=== PATIENT | female | born 1965 | race Native Hawaiian/Other Pacific Islander ===

== ENCOUNTER 2017-02-07 03:16 | Emergency (ER) | payer OTHER ==
--- NOTE | 2017-02-07 03:37 | C.PDOC ---
Time Seen by Provider: 02/07/17 03:27 Chief Complaint (Nursing): Abdominal Pain Past Medical History Vital Signs: Last Vital Signs Temp 98 F 02/07/17 03:23 Pulse 72 02/07/17 03:23 Resp 20 02/07/17 03:23 BP 135/74 02/07/17 03:23 Pulse Ox 95 02/07/17 03:23 Family History: States: Unknown Family Hx - Social History Hx Tobacco Use: Yes Hx Alcohol Use: No Hx Substance Use: No - Immunization History Hx Tetanus Toxoid Vaccination: No Hx Influenza Vaccination: No Hx Pneumococcal Vaccination: No ED Course And Treatment ECG: Interpreted By Me, Viewed By Me ECG Rhythm: Sinus Rhythm ECG Interpretation: No Acute Changes Interpretation Of ECG: NSR, normaal tracings. Rate From EC O2 Sat by Pulse Oximetry: 95 Pulse Ox Interpretation: Normal
[2017-02-07 03:50] LABS: BASO # 0.1 K/uL (0.0-0.2); BASO % 0.4 % (0.0-2.0); EOS # 0.1 K/uL (0.0-0.7); HEMATOCRIT 43.3 % (34.0-47.0); LYMPH # 2.4 K/uL (1.0-4.3); LYMPH % 17.3 % (20.0-40.0); MEAN CELL VOLUME 92.3 fL (81.0-99.0); MEAN CORPUSCULAR HEMOGLOBIN 30.6 pg (27.0-31.0); MEAN CORPUSCULAR HGB CONC 33.2 g/dL (33.0-37.0); MEAN PLATELET VOLUME 7.9 fL (7.2-11.7); MONO # 0.5 K/uL (0.0-0.8); MONO % 3.6 % (0.0-10.0); RED CELL DISTRIBUTION WIDTH 12.9 % (11.5-14.5)
[2017-02-07 03:57] LABS: CHLORIDE 103 mmol/L (98-107); SODIUM 141 mmol/L (132-148)
[2017-02-07 03:58] LABS: POTASSIUM 4.2 mmol/L (3.6-5.2)
[2017-02-07 04:00] LABS: ALB/GLOB RATIO 1.5 (1.0-2.1); ALKALINE PHOSPHATASE 65 U/L (38-126); AST/SGOT 18 U/L (14-36); BILIRUBIN,TOTAL 0.6 mg/dL (0.2-1.3); BLOOD UREA NITROGEN 18 mg/dL (7-17); CARBON DIOXIDE 26 mmol/L (22-30); GFR AFRICAN-AMERICAN > 60; GLUCOSE,RANDOM 113 mg/dL (65-105); TOTAL PROTEIN 7.9 g/dL (6.3-8.3)
[2017-02-07 04:01] LABS: ALT/SGPT 22 U/L (9-52); CALCIUM 9.1 mg/dl (8.6-10.4)
--- NOTE | 2017-02-07 04:23 | C.PDOC ---
History Of Present Illness 51 y/o female presents to ER with c/o of epigastric pain after eating porkchops last night, denies N/V/D, no fever, recent travel or UTI symptoms. Pt took PO Omeprazole at home with no relief Time Seen by Provider: 02/07/17 03:27 Chief Complaint (Nursing): Abdominal Pain History Per: Patient History/Exam Limitations: no limitations Onset/Duration Of Symptoms: Gradual (since last night) Current Symptoms Are (Timing): Still Present Context: Food Severity: Moderate Location Of Pain/Discomfort: Epigastric Quality Of Discomfort: Burning Associated Symptoms: denies: Fever, Nausea, Vomiting, Diarrhea, Back Pain, Chest Pain, Constipation, Urinary Symptoms Exacerbating Factors: Food Alleviating Factors: None Last Bowel Movement: Yesterday (normal) Recent travel outside of the [place]: No Past Medical History Vital Signs: Last Vital Signs Temp 98.1 F 02/07/17 05:58 Pulse 70 02/07/17 05:58 Resp 16 02/07/17 05:58 BP 152/81 H 02/07/17 05:58 Pulse Ox 98 02/07/17 05:58 - Medical History PMH: Gastritis Family History: States: Unknown Family Hx - Social History Hx Tobacco Use: Yes Hx Alcohol Use: No Hx Substance Use: No - Immunization History Hx Tetanus Toxoid Vaccination: No Hx Influenza Vaccination: No Hx Pneumococcal Vaccination: No Review Of Systems Constitutional: Negative for: Fever Cardiovascular: Negative for: Chest Pain Gastrointestinal: Positive for: Abdominal Pain (epigastric). Negative for: Nausea, Vomiting, Diarrhea, Constipation Physical Exam - Physical Exam Appears: Well, Non-toxic, In Acute Distress (minimal painful GI distress) Skin: Normal Color Eye(s): bilateral: Normal Inspection, PERRL Throat: Normal Chest: Symmetrical, No Tenderness Cardiovascular: Rhythm Regular, No Murmur Respiratory: Normal Breath Sounds, No Rales, No Rhonchi, No Wheezing Gastrointestinal/Abdominal: Normal Exam, Bowel Sounds (normal), Soft, Tenderness (minimal epigastric), No Distention, No Guarding, No Rebound Back: No CVA Tenderness Neurological/Psych: Oriented x3, Normal Speech Gait: Steady ED Course And Treatment - Laboratory Results Result Diagrams: 02/07/17 03:47 02/07/17 03:47 O2 Sat by Pulse Oximetry: 95 Pulse Ox Interpretation: Normal Progress Note: Pepcid ad zofram IV ordered. Labs reviewed and d/w pt. Pt still c/o of pain- maalox and lidocaine with ordered. Pt appears well, feels better, in NAD. Abdomen now soft, non tender. pt will follow up with PMD. Pt understands and agrees with plan and return precautions Reevaluation Time: 06:04 Reassessment Condition: Improved Disposition Counseled Patient/Family Regarding: Diagnosis, Need For Followup, Rx Given - Disposition Disposition: HOME/ ROUTINE Disposition Time: 04:59 Condition: STABLE Additional Instructions: Please follow up with PMD D/C omeprazole - Take pepcid and maalox Return to ER if worse Prescriptions: Aluminum Hydroxide/Magnesium H [Maalox 30 ml] 30 ml PO TID #100 ml Famotidine [Pepcid] 20 mg PO DAILY #20 tab Instructions: Gastritis (ED) - Clinical Impression Clinical Impression: Gastritis
[2017-02-07] MEDS ORDERED: Aluminum Hydroxide/Magnesium Hydroxide Susp (30 mL) PO STA (04:29)
[2017-02-07 04:40] LABS: RBC URINE 6 /hpf (0-3); URINE BILIRUBIN NEGATIVE (NEGATIVE); URINE BLOOD NEGATIVE (NEGATIVE); URINE COLOR Yellow (YELLOW); URINE GLUCOSE (UA) NORMAL (Normal); URINE KETONE NEGATIVE (NEGATIVE); URINE LEUKOCYTE ESTERASE TRACE Leu/uL (Negative); URINE PROTEIN NEGATIVE (NEGATIVE); URINE UROBILINOGEN NORMAL mg/dL (0.2-1.0); WBC URINE 4 /hpf (0-5)
[2017-02-07] MEDS ORDERED: Aluminum Hydroxide/Magnesium Hydroxide Susp (30 mL) ONE (04:45)
[2017-02-07] MEDS ORDERED: Belladonna-Phenobarbital ONE (05:24)
[2017-02-07] MEDS ORDERED: Belladonna-Phenobarbital PO STA (05:30)
[2017-02-07 05:59] VITALS: BP 152/81; PULSE 70; RESP 16; TEMP 98.1
[2017-02-07 06:25] VITALS: O2SAT 95
--- NOTE | 2017-02-08 14:05 | CARD ---
APPROVED REPORT EKG Measurement Heart [id number] <Conclusion> Normal sinus rhythm Normal ECG
== END 2017-02-07 06:12 | disposition home or self-care (01) ==
LOC: C.ER 03:16
DX: K29.70 Gastritis, unspecified, without bleeding (principal)
CPT/HCPCS: 80053; 81001; 83690; 84703; 85025; 93005; 96374; 96375; 99283; J2405

== ENCOUNTER 2018-04-30 07:35 | Emergency (ER) | payer OTHER ==
[2018-04-30 07:50] VITALS: BP 139/86; PULSE 74; RESP 18; TEMP 98.4; O2SAT 97
--- NOTE | 2018-04-30 08:14 | C.PDOC ---
History Of Present Illness 52 year old female presents to ED for evaluation of foreign body sensation to bottom of left foot for over a month. Pt states it feels like a splinter, and states she tried to remove it but was unable to. Notes she has pain when putting pressure on that leg and with ambulation. Notes her daughter is a patient here in the ER, and decided she would also get her foot evaluated. Otherwise, denies weakness, numbness, fever, or any other associated symptoms at this time. Time Seen by Provider: 04/30/18 08:08 Chief Complaint (Nursing): Foreign Body History Per: Patient History/Exam Limitations: no limitations Onset/Duration Of Symptoms: Days Current Symptoms Are (Timing): Still Present Location Of Injury: Left: Foot Quality Of Symptoms: Painful Recent travel outside of the [place]: No Additional History Per: Patient Past Medical History Reviewed: Historical Data, Nursing Documentation, Vital Signs Vital Signs: Last Vital Signs Temp 98.4 F 04/30/18 07:44 Pulse 74 04/30/18 07:44 Resp 18 04/30/18 07:44 BP 139/86 04/30/18 07:44 Pulse Ox 97 04/30/18 08:14 - Medical History PMH: Gastritis Family History: States: Unknown Family Hx - Social History Hx Tobacco Use: Yes Hx Alcohol Use: No Hx Substance Use: No - Immunization History Hx Tetanus Toxoid Vaccination: No Hx Influenza Vaccination: No Hx Pneumococcal Vaccination: No Review Of Systems Except As Marked, All Systems Reviewed And Found Negative. Constitutional: Negative for: Fever, Chills Musculoskeletal: Positive for: Foot Pain (left) Neurological: Negative for: Weakness, Numbness Physical Exam - Physical Exam Appears: Non-toxic, No Acute Distress Skin: Warm, Dry, Other (area of rough skin growth with yellow discoloration to plantar aspect of left foot, no skin opening, no signs of infection) Head: Atraumatic, Normacephalic Eye(s): bilateral: Normal Inspection Extremity: Normal ROM, No Tenderness, No Pedal Edema, Capillary Refill (less than 2 seconds), No Deformity, No Swelling Pulses: Left Dorsalis Pedis: Normal, Right Dorsalis Pedis: Normal Neurological/Psych: Oriented x3, Normal Speech, Normal Motor, Normal Sensation ED Course And Treatment O2 Sat by Pulse Oximetry: 97 (RA) Pulse Ox Interpretation: Normal Medical Decision Making Medical Decision Making: Patient is being discharge home, with instructions to follow up with podiatry in 1-2 days for further evaluation. Disposition - Disposition Referrals: Kulwinder Pina DPM [Staff Provider] - Disposition: HOME/ ROUTINE Disposition Time: 08:13 Condition: STABLE Additional Instructions: Follow up with Detective Supervisor within 1-2 days. Return to ED if feel worse. Instructions: Corns and Calluses, Foreign Body in Skin (DC) Forms: [employer] (Indonesian) - Clinical Impression Clinical Impression: Foreign body - PA / NEUROSURGICAL NURSE PRACTITIONER / Resident Statement MD/DO has reviewed & agrees with the documentation as recorded. - Scribe Statement The provider has reviewed the documentation as recorded by the Scribe KP All medical record entries made by the Scribe were at my direction and personally dictated by me. I have reviewed the chart and agree that the record accurately reflects my personal performance of the history, physical exam, medical decision making, and the department course for this patient. I have also personally directed, reviewed, and agree with the discharge instructions and disposition.
== END 2018-04-30 08:35 | disposition home or self-care (01) ==
LOC: C.ER 07:35
DX: S90.852A Superficial foreign body, left foot, initial encounter (principal); W45.8XXA Other foreign body or object entering through skin, initial encounter; Z72.0 Tobacco use